=== PATIENT | male | born 1980 | race Two or more races ===

== ENCOUNTER → 2022-07-25 | Day surgery (SDC) | payer MEDICAID ==
[2022-07-23 13:01] LABS: Basophils # (auto) 0.1 10 ^3/uL (0-0.2); Basophils % (auto) 0.7 % (0.0-2.0)
[2022-07-23 13:03] LABS: Eosinophils # (auto) 0.2 10 ^3/uL (0-0.8); Eosinophils % (auto) 3.1 % (0.0-7.0); Hematocrit 47.3 % (41.0-53.0); Lymphocytes % (auto) 25.6 % (10.0-50.0); Mean Corpuscular Hemoglobin 27.1 pg (28.0-32.0); Mean Corpuscular Hgb Conc. 33.7 g/dL (32.0-36.0); Mean Corpuscular Volume 80.3 fL (80.0-100.0); Monocytes # (auto) 0.9 10 ^3/uL (0-1.3); Monocytes % (auto) 10.7 % (0.0-12.0); Neutrophils # (auto) 4.8 10 ^3/uL (1.6-8.6); Neutrophils % (auto) 59.9 % (37.0-80.0); Nucleated Red Blood Cells % 0.3 %; Red Blood Cells 5.89 10^6/uL (4.5-5.90); Red Cell Distribution Width 13.1 % (11.8-14.3)
[2022-07-23 13:08] LABS: Urine Bacteria NONE SEEN /hpf (None Seen); Urine Blood Negative /uL (Negative); Urine WBC 1 /hpf (0 - 3)
[2022-07-23 13:29] LABS: Partial Thromboplastin Time 29.9 sec (24.6-33.4)
[2022-07-23 13:43] LABS: Potassium 4.1 mmol/L (3.5-5.1)
[2022-07-23 13:48] LABS: Albumin 3.8 g/dL (3.4-5.0); BUN/Creatinine Ratio 11.8; Calcium 9.3 mg/dL (8.5-10.1)
[2022-07-23 13:50] LABS: Bilirubin, Total 0.4 mg/dL (0.2-1.0); Total Protein 8.3 g/dL (6.4-8.2)
[~2022-07-25] VITALS: Ht 177.8 cm; Wt 82.1 kg
[~2022-07-25] MED LIST: BUPIVACAINE IMPLANT 3x100mg IL ONE; DexAMETHasone SOD PHOS 10MG/1ML VIAL INJ ONE; HYDROmorphone HCL 2 MG/ML VL/or syr IV PRN; KETOROLAC TROMETH 60MG/2ML VIAL ONE; LIDOCAINE W/ EPINEPHRINE 1% 20ML VIAL ONE; MEPERIDINE HCL (25 MG/ML) 1ML VIAL ONE; METOCLOPRAMIDE HCL 5MG/ml INJ 2ml VIAL IV PRN; MIDAZOLAM HCL 2MG/2ML 2ml VIAL (1mg/ml) ONE; MORPHINE SULFATE INJ 2 MG/ml SYRG IV PRN; ONDANSETRON HCL 4 MG/2 ML VIAL ONE; PROPOFOL 10 MG/ML 20 ML IV ONE; ROCURONIUM 10MG/ML 10ML VIAL IV ONE; SODIUM CHLORIDE LOCK 10 ML ONE; SUCCINYLCHOLINE CHLORIDE 20 MG/ML 10ML VIAL IV ONE; ceFAZolin 1GM/50ML 100 ML IV ONE; fentaNYL CITRATE 100 MCG/2 ML VL ONE
[2022-07-25 09:49] VITALS: BP 139/102
== END | disposition home or self-care (01) ==
LOC: SUR 06:16
PROVIDERS: ATTEND Surgery
DX: K40.90 Unilateral inguinal hernia, without obstruction or gangrene, not specified as recurrent (principal); Z20.822 Contact with and (suspected) exposure to COVID-19
CPT/HCPCS: 36415; 49505; 80053; 81001; 85025; 85610; 85730; 86850; 86900; 86901; 88302; C9089; J0330; J0690; J1100; J1170; J1885; J2175; J2250; J2405; J2704; J3010; U0003

== ENCOUNTER 2023-06-19 11:15 | Emergency (ER) | payer MEDICAID ==
[~2023-06-19] VITALS: Ht 177.8 cm; Wt 81.0 kg
[2023-06-19 14:42] VITALS: BP 137/86; PULSE 114; RESP 16; TEMP 98; O2SAT 98
[2023-06-19 15:31] LABS: Hematocrit 47.6 % (41.0-53.0); Mean Corpuscular Hemoglobin 27.5 pg (28.0-32.0); Mean Corpuscular Hgb Conc. 33.5 g/dL (32.0-36.0); Red Cell Distribution Width 16.2 % (11.8-14.3); White Blood Cell 7.6 10^3/uL (4.4-10.8)
[2023-06-19 15:37] LABS: Band Neutrophils % (manual) 0; Basophils % (manual) 0 (0.0-2.0); Blast Cells 0; Eosinophils % (manual) 0 (0-7); Metamyelocytes % 0; Myelocytes % 0; Promyelocytes % 0; Reactive Lymphocytes 0
[2023-06-19 15:47] LABS: Alanine Aminotransferase 201 U/L (7-40); Albumin 4.4 g/dL (3.2-4.8); Alkaline Phosphatase 113 U/L (46-116); Anion Gap 6 (5-15); Aspartate Aminotransferase 108 U/L (13-40); Bilirubin, Direct 0.7 mg/dL (<0.3); Bilirubin, Total 1.2 mg/dL (0.2-1.0); Blood Urea Nitrogen 16 mg/dL (9-23); Calcium 9.6 mg/dL (8.5-10.1); Carbon Dioxide 25 mmol/L (20-30); Chloride 104 mmol/L (98-107); Glucose 107 mg/dL (74-106); Potassium 4.7 mmol/L (3.5-5.1); Sodium 135 mmol/L (136-145); Total Protein 8.3 g/dL (5.7-8.2)
[2023-06-19 16:14] LABS: INR 1.08 (0.9-1.15); Prothrombin Time 11.3 sec (9.3-11.8)
[2023-06-19 17:07] LABS: Anisocytosis Slight; Lymphocytes % (manual) 17 (10.0-50.0); Monocytes % (manual) 23 (0-12); Platelet Estimate Adequate
[2023-06-19] MEDS ORDERED: BACDST PO (17:11)
[2023-06-19] MEDS ORDERED: FAMO20TA10 PO (17:11)
[2023-06-19] MEDS ORDERED: HYDR50TA32 PO (17:11)
== END 2023-06-19 17:18 | disposition home or self-care (01) ==
LOC: ER 11:15
DX: K52.1 Toxic gastroenteritis and colitis (principal); L30.9 Dermatitis, unspecified; T47.6X5A Adverse effect of antidiarrheal drugs, initial encounter; Z79.01 Long term (current) use of anticoagulants; Y92.89 Other specified places as the place of occurrence of the external cause
CPT/HCPCS: 36415; 80048; 80076; 85007; 85027; 85610